=== PATIENT | female | born 1935 | race Caucasian/White ===

== ENCOUNTER 2021-07-14 13:43 | Outpatient (CLI) | payer MEDICARE, SELFPAY ==
[2021-07-14 14:03] LABS: Hematocrit 41.5 % (37.0-47.0); Hemoglobin 13.8 g/dL (12.0-15.0); Mean Corpuscular HGB Conc 33.3 g/dl (32-36); Mean Corpuscular Hemoglobin 30.8 pg (26-34); Mean Corpuscular Volume 92.6 fl (80-100); Mean Platelet Volume 10.5 fl (7.4-10.4); Platelet Count Result 221 k/mm3 (150-375); Red Blood Count 4.48 M/mm3 (4.2-5.4); Red Cell Distribution Width 13.6 % (11.5-14.5); White Blood Count 10.7 K/mm3 (4.5-10.0)
[2021-07-14 14:16] LABS: Alanine Aminotransferase 15 U/L (4-35); Albumin Level 4.5 g/dL (3.5-5.1); Alkaline Phosphatase 83 U/L (38-126); Anion Gap 10 mmol/L (8-16); Aspartate Amino Transferase 29 U/L (14-36); Bilirubin,Total 0.4 mg/dL (0.2-1.3); Blood Urea Nitrogen 19 mg/dL (7-17); Calcium 9.8 mg/dL (8.4-10.2); Carbon Dioxide 28 mmol/L (22-30); Chloride 101 mmol/L (98-107); Estimated Glomerular Filt Rate 60; Glucose 87 mg/dL (65-110); Potassium 4.3 mmol/L (3.4-5.0); Sodium 139 mmol/L (137-145)
== END 2021-07-14 13:44 | disposition home or self-care (01) ==
LOC: ANHLAB 13:48
PROVIDERS: PCP Family Medicine; Visit Provider Nurse Practitioner Family
DX: L98.9 Disorder of the skin and subcutaneous tissue, unspecified (principal); D64.9 Anemia, unspecified; R53.83 Other fatigue
CPT/HCPCS: 36415; 80053; 84443; 85027

== ENCOUNTER 2021-10-07 11:41 | Outpatient (CLI) | payer MEDICARE, SELFPAY ==
--- NOTE | ~2021-10-07 | XR_ITS ---
EXAMINATION: XR chest 2V DATE: 10/07/2021 12:16 INDICATION: Nicotine dependence TECHNIQUE: PA and lateral views of the chest are obtained. COMPARISON: 08/27/2018 FINDINGS: The lungs are free of acute opacities. There is no pleural effusion or pneumothorax. 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 The cardiomediastinal silhouette is normal. There is mild thoracic spondylosis. IMPRESSION: 1. No acute cardiopulmonary abnormality. Reviewed, dictated and finalized at location A. [employer]PER[employer]
[2021-10-07 12:52] LABS: Vitamin D 25 Hydroxy 41.4 ng/mL
== END 2021-10-07 11:42 | disposition home or self-care (01) ==
PROVIDERS: PCP Family Medicine; Visit Provider Nurse Practitioner Family
DX: F17.200 Nicotine dependence, unspecified, uncomplicated (principal); R79.89 Other specified abnormal findings of blood chemistry; R53.83 Other fatigue; E55.9 Vitamin D deficiency, unspecified; L98.9 Disorder of the skin and subcutaneous tissue, unspecified; D64.9 Anemia, unspecified
CPT/HCPCS: 36415; 71046; 82306; 84436; 84443; 85048

== ENCOUNTER 2021-12-19 00:49 | Day surgery (SDC) | payer MEDICARE, SELFPAY ==
[2021-12-12 12:12] VITALS: BMI 20.9
[2021-12-19 07:25] VITALS: BP 107/61; PULSE 82; RESP 18; TEMP 36.1; O2SAT 97
[2021-12-19] MEDS: LACTATED RINGERS 1,000 ML 150 ML IV CONT (07:39)
--- NOTE | 2021-12-19 07:48 | WPDANESEPPF ---
Anes - Initial Pre Proc Eval Procedure: Operation Date: 12/19/21 08:30 Proposed Procedures p Esophagogastroduodenoscopy - Keshawn Sy MD Date/Time: 12/19/21 07:48 Surgeon: Keshawn Sy MD Pre Op Diagnosis: epigastric pain, nausea Patient Data Age: 86 Gender: F Height: 1.57 m Weight: 56.4 kg Last Vital Signs Temp 36.1 C L 12/19/21 07:25 Pulse 82 12/19/21 07:25 Resp 18 12/19/21 07:25 BP 107/61 12/19/21 07:25 Pulse Ox 97 12/19/21 07:25 Allergies Allergy/AdvReac Type Severity Reaction Status Date / Time cefuroxime Allergy Unknown hives Verified 12/19/21 07:24 clarithromycin Allergy Unknown Unknown Verified 12/19/21 07:24 levofloxacin Allergy Unknown Unknown Verified 12/19/21 07:24 Home Medications Medication Instructions Recorded Confirmed Type tobramycin-dexamethasone 0.3 %-0.1 1 applic EACH EYE TID #3.5 gm 06/22/20 12/12/21 Rx % eye ointment albuterol sulfate 90 mcg/actuation 2 inh INHALATION Q4H PRN #18 gm 04/19/21 12/12/21 Rx aerosol inhaler diphenhydramine HCl 25 mg capsule 25 mg PO Q6H PRN 07/14/21 12/12/21 History docusate sodium 100 mg capsule 100 mg PO DAILY PRN #30 cap 10/13/21 12/12/21 Rx esomeprazole magnesium 40 mg 40 mg PO DAILY #30 cap 12/05/21 12/12/21 Rx capsule,delayed release simethicone 125 mg capsule 125 mg PO BID cap 12/05/21 12/12/21 History ondansetron 4 mg disintegrating 4 mg PO Q8H PRN #14 tablet 12/15/21 Rx tablet Patient hx anesthesia problems: none Family hx anesthesia problems: none Results Review: All pre-operative results and documents have been reviewed as part of the pre-operative evaluation. [facility] Surgical History Surgical History (Updated 12/19/21 @ 07:51 by Emiliano Kelley MD) H/O: hysterectomy History of appendectomy Family History Family History Sibling Hypertension Family history of diabetes mellitus in first degree relative Family history of coronary artery disease Father Cerebrovascular accident Family history of coronary artery disease Mother Family history of malignant neoplasm of breast in first degree relative Other Family history of pancreatic cancer Social History Social History Smoking packs per day: 0.5 Smoking cigarettes per day: 10.0 Years smoked: 70 Smoking pack-years: 35.00 Smoking status: Current every day smoker Tobacco type: cigarettes Alcohol intake: never Substance use: never Substance use type: does not use Living arrangements: alone Gender identity (if verbalized by the patient): Female Sexual Orientation (if Verbalized by the Patient): Straight or Heterosexual Spiritual care concerns: No Agree to blood products: Yes Anes - Eval Final PreProcedure Day of Procedure 12/19/21 07:48 Patient weight: normal Heart: regular rate and rhythm Lungs: clear to auscultation Airway: Mallampati scale class II Neurological: alert and oriented Last oral intake: >/= 8 hours ASA classification: III Emergent: no Anesthetic plan: proceed Anesthesia type and monitoring: general GIVS and standard monitoring Results Review: All pre-operative results and documents have been reviewed as part of the pre-operative evaluation. Informed Consent: The patient's anesthetic plan and its attendant risks and benefits were discussed with the patient/family/POA. Questions were solicited and answers provided to the satisfaction of the patient/family/POA.
--- NOTE | 2021-12-19 08:02 | PM.HPGS ---
History of Present Illness History of Present Illness Consent: Risks, benefits, and alternatives have been discussed and questions answered. Patient agrees to proceed with procedure. Chief complaint: epigastric pain, nausea Narrative: Salud Bower is a 86 year old female with odynophagia after eating and nausea/burping, never had EGD. She tried in the past nexium but upset her stomach, now on zofran as needed. Review of Systems Constitutional: Constitutional: Denies headache(s) and Denies weakness Eyes: Eyes: Denies blurry vision ENT: Reports Normal hearing present, Denies headache(s) and Denies neck pain Cardiovascular: Cardiovascular: Denies chest pain and Denies dyspnea Respiratory: Respiratory: Denies dyspnea Gastrointestinal: Gastrointestinal: Reports no additional gastrointestinal complaints Genitourinary: Genitourinary: Denies dysuria Musculoskeletal: Musculoskeletal: Denies neck pain Integumentary/Breasts: Skin/Breast: Denies dry skin Neurologic: Reports Normal hearing present, Denies headache(s) and Denies weakness Psychiatric: Psychiatric: Denies anxiety Endocrine: Endocrine: Denies change in body appearance Hematologic/Lymphatic: Hematologic/Lymphatic: Denies easy bleeding Allergic/Immunologic: Allergic/Immunologic: Denies urticaria PMFSH Past Medical History Medical History (Updated 12/19/21 @ 08:03 by Keshawn Sy MD) Odynophagia Surgical History Surgical History (Updated 12/19/21 @ 07:51 by Emiliano Kelley MD) H/O: hysterectomy History of appendectomy Family History Family History Sibling Hypertension Family history of diabetes mellitus in first degree relative Family history of coronary artery disease Father Cerebrovascular accident Family history of coronary artery disease Mother Family history of malignant neoplasm of breast in first degree relative Other Family history of pancreatic cancer Social History Social History Smoking packs per day: 0.5 Smoking cigarettes per day: 10.0 Years smoked: 70 Smoking pack-years: 35.00 Smoking status: Current every day smoker Tobacco type: cigarettes Alcohol intake: never Substance use: never Substance use type: does not use Living arrangements: alone Gender identity (if verbalized by the patient): Female Sexual Orientation (if Verbalized by the Patient): Straight or Heterosexual Spiritual care concerns: No Agree to blood products: Yes Meds Home Medications and Allergies Home Medications Medication Instructions Recorded Confirmed Type tobramycin-dexamethasone 0.3 %-0.1 1 applic EACH EYE TID #3.5 gm 06/22/20 12/12/21 Rx % eye ointment albuterol sulfate 90 mcg/actuation 2 inh INHALATION Q4H PRN #18 gm 04/19/21 12/12/21 Rx aerosol inhaler diphenhydramine HCl 25 mg capsule 25 mg PO Q6H PRN 07/14/21 12/12/21 History docusate sodium 100 mg capsule 100 mg PO DAILY PRN #30 cap 10/13/21 12/12/21 Rx esomeprazole magnesium 40 mg 40 mg PO DAILY #30 cap 12/05/21 12/12/21 Rx capsule,delayed release simethicone 125 mg capsule 125 mg PO BID cap 12/05/21 12/12/21 History ondansetron 4 mg disintegrating 4 mg PO Q8H PRN #14 tablet 12/15/21 Rx tablet Allergies Allergy/AdvReac Type Severity Reaction Status Date / Time cefuroxime Allergy Unknown hives Verified 12/19/21 07:24 clarithromycin Allergy Unknown Unknown Verified 12/19/21 07:24 levofloxacin Allergy Unknown Unknown Verified 12/19/21 07:24 Vital Signs Vital Signs - 24 hr 12/19/21 07:25 Temperature 97 F L Pulse Rate 82 Respiratory Rate 18 Blood Pressure 107/61 Pulse Oximetry 97 Exam Const: General: comfortable and no acute distress HENMT: General nose exam: Normal nares present Eyes: General: appearance normal, both eyes and all related structures Neck: Neck: no JVD Resp: Auscultat
[2021-12-19 08:16] VITALS: BP 101/45; PULSE 56; RESP 17; O2SAT 100
[2021-12-19 08:26] VITALS: BP 85/35; PULSE 69; RESP 17; O2SAT 98
[2021-12-19 08:36] VITALS: BP 104/50; PULSE 74; RESP 16; O2SAT 98
== END 2021-12-19 09:04 | disposition home or self-care (01) ==
PROVIDERS: PCP Family Medicine; Visit Provider Internal Medicine Gastroenterology
PROC: 0DJ08ZZ Inspection of Upper Intestinal Tract, Via Natural or Artificial Opening Endoscopic (ICD-10-PCS; CPT 43235; principal; 2021-12-19 08:30)
DX: C7A.8 Other malignant neuroendocrine tumors (principal); R13.10 Dysphagia, unspecified; K29.50 Unspecified chronic gastritis without bleeding; B96.81 Helicobacter pylori [H. pylori] as the cause of diseases classified elsewhere; K21.9 Gastro-esophageal reflux disease without esophagitis; R11.0 Nausea; R14.0 Abdominal distension (gaseous); F17.210 Nicotine dependence, cigarettes, uncomplicated
CPT/HCPCS: 43239; 88305; 88313; 88342; J2001; J2704; J7120

== ENCOUNTER 2021-12-23 09:56 | Outpatient (CLI) | payer MEDICARE, SELFPAY ==
--- NOTE | ~2021-12-23 | CT_ITS ---
EXAMINATION: CT chest abdomen pelvis w con DATE: 12/23/2021 10:25 INDICATION: Esophageal carcinoma. TECHNIQUE: Computed tomography (CT) of the chest, abdomen, and pelvis was performed with 100 mL Omnip aque 350 intravenous contrast. Automated exposure control and iterative reconstruction technique were employed. The dose-length product was 390.38 mGy-cm. COMPARISON: CT abdomen and pelvis 01/22/2019 FINDINGS: CHEST CT: There is mild scarring at the lung apices. There is moderate emphysema. There is mild atelectasis sherice aterally. A calcified left lung nodule and calcified left hilar lymph nodes are consistent with old g ranulomatous disease. No pleural effusion. The heart size is normal. No pericardial effusion. There i s mild thoracic spondylosis. ABDOMEN/PELVIS CT: There is wall thickening of the distal esophagus and proximal stomach. There is a 2.3 x 1.6 cm mass i n left hepatic lobe. There is a 1.7 cm mass in right hepatic lobe. The gallbladder and spleen are nor mal. 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 The adrenal glands are normal. There is cortical thinning of the kidneys. There is diverticulosis of the colon without evidence of diverticu litis. There are no dilated loops of bowel. The appendix is not visualized. There is bulky gastrohepa tic lymphadenopathy with a dewey mass measuring 6.2 x 3.9 cm. There is no free intraperitoneal fluid. There is severe lumbar spondylosis. IMPRESSION: 1. Wall thickening of the distal esophagus and proximal stomach, consistent with primary malignancy. 2. Gastrohepatic lymphadenopathy and new liver masses, consistent with metastatic disease. 3. Moderate emphysema. 4. 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 Reviewed, dictated and finalized at location A. 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 Wall thickening of the distal esophagus and proximal stomach, consistent wit h primary malignancy. 2. Gastrohepatic lymphadenopathy and new liver masses, consistent with metastat ic disease. 3. Moderate emphysema. 4. 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
[2021-12-23 10:20] LABS: Estimated Glomerular Filt Rate > 60
== END 2021-12-23 09:57 | disposition home or self-care (01) ==
LOC: ANHIMG 09:58
PROVIDERS: PCP Family Medicine; Visit Provider Internal Medicine Gastroenterology
DX: R13.10 Dysphagia, unspecified (principal); K22.89 Other specified disease of esophagus; R59.0 Localized enlarged lymph nodes; R16.0 Hepatomegaly, not elsewhere classified; J43.9 Emphysema, unspecified; I71.4 Abdominal aortic aneurysm, without rupture
CPT/HCPCS: 71260; 74177; Q9967